=== PATIENT | male | born 1970 | race Caucasian/White ===

== ENCOUNTER → 2017-05-09 | Outpatient (CLI) | payer OTHER ==
--- NOTE | 2017-05-09 11:18 | RADIOLOGY REPORT (SQ) ---
EXAM DESCRIPTION: DUPLEX ART/YUKO FLOW COMPLETE COMPLETED DATE/TIME: 05/09/2017 9:37 am REASON FOR STUDY: HTN/BRADLEY COMPARISON: None. TECHNIQUE: Realtime and static grayscale images acquired. Selected color Doppler, velocities and spe ctral images recorded. LIMITATIONS: Limited visualization of the renal arteries off the aorta FINDINGS: RIGHT KIDNEY: RENAL ARTERY VELOCITIES: At the right renal hilum, 87 cm/sec. Segmental artery velocity 71 cm/sec. RENAL VEIN: Color doppler flow present, patent. VELOCITY RATIO: 0.8. Normal waveforms. KIDNEY: Normal size, 12.4 cm in length without cysts, stones, or hydronephrosis . LEFT KIDNEY: RENAL ARTERY VELOCITIES: At the left renal hilum 118 cm/sec. Segmental artery velocity 70 cm/sec. RENAL VEIN: Color doppler flow present, patent. VELOCITY RATIO: 1.0. Normal waveforms. KIDNEY: Normal size, 11.6 cm in length without cysts, stones, or hydronephrosis . BLADDER: Normal. OTHER: Prostate 4.5 x 4.4 by 4 cm in size IMPRESSION: NO DOPPLER EVIDENCE OF HEMODYNAMICALLY SIGNIFICANT RENAL ARTERY STENOSIS. COMMENT: NORMAL RENAL ARTERY/AORTA VELOCITY RATIO IS LESS THAN OR EQUAL TO 3.5. TECHNICAL DOCUMENTATION: JOB ID: [id number] [employer] All Rights Reserved
== END ==
LOC: RAD 08:44
PROVIDERS: ATTEND General Practice
DX: I70.1 Atherosclerosis of renal artery (principal)
CPT/HCPCS: 93975

== ENCOUNTER → 2019-10-05 | Outpatient (CLI) | payer OTHER ==
[2019-10-05 10:11] LABS: PV NONMOTILE COUNT1 0; PV NONMOTILE COUNT2 0; PV SEMEN COLOR STRAW; PV SEMEN LIQUEFACTION 30 MINUTES (<61); PV SEMEN PH 9.1 (>7.1); PV SEMEN VISCOSITY HIGH (NORMAL); PV VOLUME 1.5 mL (>1.4)
[2019-10-05 10:12] LABS: PV ROUND CELL COUNT1 0; PV ROUND CELL COUNT2 0
[2019-10-05 10:14] LABS: PV SPERM MOTILITY 0 % (0)
== END ==
PROVIDERS: ATTEND Family Medicine
DX: Z30.2 Encounter for sterilization (principal)
CPT/HCPCS: 89321